=== PATIENT | female | born 1945 | race Caucasian/White ===

== ENCOUNTER 2017-03-31 12:20 | Emergency (ER) | payer MEDICARE ==
[~2017-03-31] VITALS: Ht 167.6 cm; Wt 105.0 kg
[~2017-03-31 12:20] MED LIST: AMIT10TA PO; AMLO5TAB2 PO; CLON0.1T PO; HYDR-3307 PO; LOSA50TA6 PO; OXYC5CAP2 PO; SUCR1TAB33 PO
[2017-03-31] MEDS ORDERED: SODIUM CHLORIDE 0.9% 1,000 ML IV ONE (12:27)
[2017-03-31] MEDS ORDERED: SODIUM CHLORIDE 0.9% 1,000ML IVBOLUS ONE ×2 (12:30→14:30)
[2017-03-31] MEDS ORDERED: ONDANSETRON 2MG/ML, 2ML IVPush ONE (12:30)
[2017-03-31] MEDS ORDERED: PROMETHAZINE 25 MG/ML, 1ML IM ONE (12:30)
[2017-03-31] MEDS ORDERED: MAALOX/HYOSCYAMINE/LIDOCAINE 45 ML BTL PO ONE (12:30)
[2017-03-31] MEDS ORDERED: FAMOTIDINE 20 MG/2 ML IVP ONE (12:30)
[2017-03-31] MEDS ORDERED: PROMETHAZINE 25 MG/ML, 1ML ONE (12:46)
[2017-03-31] MEDS ORDERED: morphine SULFATE 10 MG/ML, 1ML ONE ×2 (12:47→16:25)
[2017-03-31] MEDS ORDERED: FAMOTIDINE 20 MG/2 ML ONE (12:47)
[2017-03-31] MEDS ORDERED: ONDANSETRON 2MG/ML, 2ML ONE (12:47)
[2017-03-31] MEDS ORDERED: MAALOX/HYOSCYAMINE/LIDOCAINE 45 ML BTL ONE (12:47)
[2017-03-31] MEDS: MORPHINE SULFATE 4 MG/ML, 1ML IVPush PRN ×2 (12:54→16:29)
[2017-03-31 13:01] LABS: HEMATOCRIT 49.6 % (34.6-47.8); WHITE BLOOD COUNT 19.9 x10^3/uL (3.4-10)
[2017-03-31 13:12] LABS: BLOOD UREA NITROGEN 14 mg/dL (7-18)
[2017-03-31 13:33] LABS: ASPARTATE AMINO TRANSFERASE 19 U/L (15-37)
[2017-03-31 15:58] VITALS: BP 134/72
== END 2017-03-31 17:17 | disposition home or self-care (01) ==
LOC: ED 14:00
DX: K29.00 Acute gastritis without bleeding (principal); D72.829 Elevated white blood cell count, unspecified; G89.29 Other chronic pain; M54.9 Dorsalgia, unspecified
CPT/HCPCS: 36415; 80053; 81001; 83605; 83690; 84145; 85025; 87040; 87077; 87086; 87186; 96361; 96372; 96374; 96375; 96376; 99285; J2405; J2550; J7030; S0028

== ENCOUNTER 2018-05-02 05:49 | Inpatient (IN) | payer MEDICARE ==
[~2018-05-02] VITALS: Ht 167.6 cm; Wt 106.3 kg
[~2018-05-02 05:49] MED LIST changes: +AMLO-150 PO; -AMLO5TAB2 PO; +CEFD300C37 PO; -LOSA50TA6 PO; +LOSA50TA7 PO
[2018-05-02] MEDS ORDERED: FAMOTIDINE 20 MG/2 ML ONE (06:25)
[2018-05-02] MEDS ORDERED: ONDANSETRON 2MG/ML, 2ML ONE (06:25)
[2018-05-02] MEDS ORDERED: MAALOX/HYOSCYAMINE/LIDOCAINE 45 ML BTL ONE (06:25)
[2018-05-02] MEDS ORDERED: FAMOTIDINE 20 MG/2 ML IVP ONE (06:30)
[2018-05-02] MEDS ORDERED: ONDANSETRON 2MG/ML, 2ML IVPush ONE (06:30)
[2018-05-02] MEDS ORDERED: morphine SULFATE 10 MG/ML, 1ML IVPush ONE (06:30)
[2018-05-02] MEDS ORDERED: DIPHENHYDRAMINE 50 MG/ML, 1ML IVPush ONE (06:30)
[2018-05-02] MEDS ORDERED: SODIUM CHLORIDE 0.9% 1,000ML IVBOLUS ONE (06:30)
[2018-05-02] MEDS ORDERED: MAALOX/HYOSCYAMINE/LIDOCAINE 45 ML BTL PO ONE (06:30)
[2018-05-02] MEDS ORDERED: SODIUM CHLORIDE FLUSH 10ML SYR IVF ONE (06:30)
[2018-05-02 06:32] LABS: MEAN CORPUSCULAR HGB CONC 35.3 g/dL (32.4-35.8); MEAN CORPUSCULAR VOLUME 90.7 fL (80-100); MEAN PLATELET VOLUME 8.6 fL (7.4-10.4); PLATELET COUNT 292 x10^3/uL (130-400); RED BLOOD COUNT 5.16 x10^6/uL (3.82-5.3); RED CELL DISTRIBUTION WIDTH 14.6 % (9.6-15.2)
[2018-05-02 06:44] LABS: TROPONIN I < 0.015 ng/mL (0.000-0.045)
[2018-05-02 06:45] LABS: ALANINE AMINOTRANSFERASE 31 U/L (12-78); ALBUMIN 3.8 g/dL (3.4-5.0); ANION GAP 12 mmol/L (5-15); CALCIUM 9.3 mg/dL (8.5-10.1); CHLORIDE 104 mmol/L (98-107); CREATININE 1.03 mg/dL (0.55-1.02)
[2018-05-02 06:47] LABS: ALKALINE PHOSPHATASE 72 U/L (45-117); BILIRUBIN,TOTAL 0.3 mg/dL (0.2-1.0); TOTAL PROTEIN 7.3 g/dL (6.4-8.2)
[2018-05-02 07:17] LABS: BASOPHILS # (AUTO) 0.05 x10^3/uL (0-0.1); BASOPHILS % (AUTO) 0 % (0-1); EOSINOPHILS % (AUTO) 1 % (1-7); LYMPHOCYTES # (AUTO) 1.91 x10^3/uL (1-3.4); LYMPHOCYTES % (AUTO) 12 % (22-44); MD SCAN; MONOCYTES # (AUTO) 1.49 x10^3/uL (0.2-0.8); MONOCYTES % (AUTO) 10 % (2-9); NEUTROPHILS # (AUTO) 12.18 x10^3/uL (1.8-6.8); NEUTROPHILS % (AUTO) 77 % (42-75)
[2018-05-02 07:29] LABS: MICROSCOPIC INDICATED
[2018-05-02 07:34] LABS: CULTURE INDICATED? YES
[2018-05-02] MEDS ORDERED: CEFTRIAXONE PMX 1GM/50ML 50 ML IV ONE (08:00)
[2018-05-02] MEDS ORDERED: CEFTRIAXONE PMX 1GM/50ML 50 ML ONE (08:17)
[2018-05-02] MEDS ORDERED: VERA120C2 PO (08:51)
[2018-05-02] MEDS ORDERED: POLYETHYLENE GLYCOL 17 GM PACKET PO PRN (09:00)
[2018-05-02] MEDS ORDERED: BISACODYL 10 MG SUPP PR PRN (09:00)
[2018-05-02] MEDS ORDERED: ONDANSETRON ODT 4 MG PO PRN (09:00)
[2018-05-02] MEDS ORDERED: ACETAMINOPHEN 325 MG TABLET PO PRN (09:00)
[2018-05-02] MEDS ORDERED: ENALAPRILAT 1.25 MG/ML, 2ML IVPush PRN (09:00)
[2018-05-02] MEDS ORDERED: LABETALOL 5MG/ML, 20ML IVPush PRN (09:00)
[2018-05-02] MEDS ORDERED: ONDANSETRON 2MG/ML, 2ML IVPush PRN (09:00)
[2018-05-02] MEDS ORDERED: DOCUSATE 100 MG CAPSULE PO PRN (09:00)
[2018-05-02 09:28] VITALS: BP 159/97
[2018-05-02] MEDS: VERAPAMIL ER 120MG TABLET.ER PO SCH (09:55)
[2018-05-02] MEDS: ACYCLOVIR 400 MG TABLET PO SCH ×3 (09:55→20:31)
[2018-05-02] MEDS: HEPARIN 5,000 UNITS/ML, 1ML SQ SCH ×2 (09:55→18:00)
[2018-05-02] MEDS: HYDROcodone/APAP 10/325 MG TABLET PO PRN ×3 (11:57→20:31)
[2018-05-02] MEDS: SODIUM CHLORIDE 0.9% 1,000 ML IV SCH ×2 (11:58→19:51)
[2018-05-02 14:15] VITALS: BP 127/72
[2018-05-02 20:15] VITALS: BP 139/78
[2018-05-02] MEDS: MAALOX/HYOSCYAMINE/LIDOCAINE 45 ML BTL PO PRN (20:28)
[2018-05-02] MEDS ORDERED: AMITRIPTYLINE 75 MG TABLET PO PRN (21:00)
[2018-05-03] MEDS: HYDROcodone/APAP 10/325 MG TABLET PO PRN ×6 (00:56→22:26)
[2018-05-03] MEDS: HEPARIN 5,000 UNITS/ML, 1ML SQ SCH ×3 (02:02→17:18)
[2018-05-03 02:10] VITALS: BP 142/83
[2018-05-03] MEDS: SODIUM CHLORIDE 0.9% 1,000 ML IV SCH ×2 (03:07→13:18)
[2018-05-03 05:33] LABS: MEAN CORPUSCULAR HEMOGLOBIN 31.4 pg (27.0-34.8); MEAN CORPUSCULAR HGB CONC 34.1 g/dL (32.4-35.8); MEAN CORPUSCULAR VOLUME 92.2 fL (80-100); MEAN PLATELET VOLUME 8.5 fL (7.4-10.4); PLATELET COUNT 261 x10^3/uL (130-400); RED BLOOD COUNT 4.45 x10^6/uL (3.82-5.3); RED CELL DISTRIBUTION WIDTH 14.9 % (9.6-15.2)
[2018-05-03 05:43] LABS: CHLORIDE 108 mmol/L (98-107)
[2018-05-03 05:51] LABS: ANION GAP 9 mmol/L (5-15); CALCIUM 8.1 mg/dL (8.5-10.1); CREATININE 0.89 mg/dL (0.55-1.02)
[2018-05-03 05:53] LABS: BASOPHILS # (AUTO) 0.08 x10^3/uL (0-0.1); BASOPHILS % (AUTO) 1 % (0-1); EOSINOPHILS # (AUTO) 0.22 x10^3/uL (0-0.4); EOSINOPHILS % (AUTO) 3 % (1-7); LYMPHOCYTES # (AUTO) 3.01 x10^3/uL (1-3.4); LYMPHOCYTES % (AUTO) 39 % (22-44); MD SCAN; MONOCYTES % (AUTO) 12 % (2-9); NEUTROPHILS # (AUTO) 3.44 x10^3/uL (1.8-6.8); NEUTROPHILS % (AUTO) 45 % (42-75)
[2018-05-03 05:54] LABS: HEMOGLOBIN A1C 6.8 % (4.2-6.3)
[2018-05-03] MEDS: CEFTRIAXONE PMX 1GM/50ML 50 ML IV SCH (08:35)
[2018-05-03] MEDS: VERAPAMIL ER 120MG TABLET.ER PO SCH (08:35)
[2018-05-03] MEDS: ACYCLOVIR 400 MG TABLET PO SCH ×3 (08:37→21:00)
[2018-05-03 08:56] VITALS: BP 151/73
[2018-05-03] MEDS: MAALOX/HYOSCYAMINE/LIDOCAINE 45 ML BTL PO PRN (09:19)
[2018-05-03] MEDS: LIDODERM 5% PATCH TD PRN (09:19)
[2018-05-03] MEDS: SUCRALFATE 1 GM/10 ML UDC PO SCH ×3 (12:51→21:00)
[2018-05-03 18:05] VITALS: BP 159/83
[2018-05-03] MEDS: VERAPAMIL ER 180MG TABLET.ER PO SCH ×2 (18:24→18:33)
[2018-05-03 19:41] VITALS: BP 156/89
[2018-05-03] MEDS ORDERED: AMITRIPTYLINE 75 MG TABLET PO SCH (21:00)
[2018-05-04] MEDS: HEPARIN 5,000 UNITS/ML, 1ML SQ SCH ×2 (02:00→08:36)
[2018-05-04] MEDS: HYDROcodone/APAP 10/325 MG TABLET PO PRN ×2 (02:56→07:16)
[2018-05-04] MEDS: SODIUM CHLORIDE 0.9% 1,000 ML IV SCH (02:56)
[2018-05-04] MEDS: LIDODERM 5% PATCH TD PRN (05:30)
[2018-05-04] MEDS: SUCRALFATE 1 GM/10 ML UDC PO SCH (07:16)
[2018-05-04 07:50] VITALS: BP 146/82
[2018-05-04] MEDS ORDERED: VERAPAMIL ER 120MG TABLET.ER ONE (08:31)
[2018-05-04] MEDS: CEFTRIAXONE PMX 1GM/50ML 50 ML IV SCH (08:36)
[2018-05-04] MEDS: ACYCLOVIR 400 MG TABLET PO SCH (08:37)
[2018-05-04] MEDS: VERAPAMIL ER 180MG TABLET.ER PO SCH (08:37)
[2018-05-04] MEDS ORDERED: ACYC-114 PO (08:58)
[2018-05-04] MEDS ORDERED: VERA180T56 PO (08:58)
[2018-05-04] MEDS ORDERED: CEFD300C37 PO (08:58)
[2018-05-04] MEDS ORDERED: VERAPAMIL ER 180MG TABLET.ER PO SCH (09:00)
== END 2018-05-04 11:12 | disposition home or self-care (01) | DRG 871 ==
LOC: ED 07:46 → EDIP 07:47 → ED 08:02 → 4NOR 09:15
PROVIDERS: ADMIT Hospitalist; ATTEND Hospitalist
DX: A41.9 Sepsis, unspecified organism (principal); J96.21 Acute and chronic respiratory failure with hypoxia; N10 Acute pyelonephritis; I10 Essential (primary) hypertension; A60.00 Herpesviral infection of urogenital system, unspecified; E11.9 Type 2 diabetes mellitus without complications; Z79.84 Long term (current) use of oral hypoglycemic drugs; R53.82 Chronic fatigue, unspecified; E66.9 Obesity, unspecified; Z68.37 Body mass index [BMI] 37.0-37.9, adult; Z88.6 Allergy status to analgesic agent; Z88.2 Allergy status to sulfonamides; Z88.8 Allergy status to other drugs, medicaments and biological substances; G47.00 Insomnia, unspecified; G47.33 Obstructive sleep apnea (adult) (pediatric); G89.29 Other chronic pain; M79.7 Fibromyalgia; Z90.710 Acquired absence of both cervix and uterus; Z90.49 Acquired absence of other specified parts of digestive tract
CPT/HCPCS: 36415; 80048; 80053; 81001; 83036; 83605; 83690; 83735; 84100; 84145; 84484; 85025; 87040; 87077; 87086; 87186; 93005; 96361; 96365; 96375; 99285; G0378; J0696; J1644; J2405; J3490; J7030

== ENCOUNTER 2019-06-03 06:29 | Emergency (ER) | payer MEDICARE ==
[~2019-06-03] VITALS: Ht 170.2 cm; Wt 104.3 kg
[~2019-06-03 06:29] MED LIST changes: +ACYC-114 PO; -CLON0.1T PO; +CLON0.1T22 PO; -HYDR-3307 PO; +HYDR-36 PO; +LOSA50TA14 PO; -LOSA50TA7 PO; +VERA120C2 PO; +VERA180T6 PO
[2019-06-03 06:32] VITALS: BP 165/91
--- NOTE | 2019-06-03 06:54 | NUR ---
ER PA AMA IN TO CONDUCT PELVIC EXAM
--- NOTE | 2019-06-03 06:54 | NUR ---
BEDSIDE REPORT TO PEPPER RODRÍGUEZ
[2019-06-03] MEDS ORDERED: FLUCONAZOLE 100 MG TABLET PO ONE (07:00)
[2019-06-03] MEDS ORDERED: FLUCONAZOLE 100 MG TABLET ONE (07:08)
[2019-06-03 07:35] LABS: BASOPHILS % (AUTO) 1 % (0-1); EOSINOPHILS # (AUTO) 0.32 x10^3/uL (0-0.4); EOSINOPHILS % (AUTO) 3 % (1-7); LYMPHOCYTES # (AUTO) 3.83 x10^3/uL (1-3.4); LYMPHOCYTES % (AUTO) 39 % (22-44); MD NO; MEAN CORPUSCULAR HEMOGLOBIN 30.8 pg (27.0-34.8); MEAN CORPUSCULAR VOLUME 90.6 fL (80-100); MEAN PLATELET VOLUME 8.9 fL (7.4-10.4); MONOCYTES # (AUTO) 1.07 x10^3/uL (0.2-0.8); MONOCYTES % (AUTO) 11 % (2-9); NEUTROPHILS % (AUTO) 46 % (42-75); PLATELET COUNT 266 x10^3/uL (130-400); RED BLOOD COUNT 5.26 x10^6/uL (3.82-5.3); RED CELL DISTRIBUTION WIDTH 13.6 % (9.6-15.2)
[2019-06-03 07:46] LABS: ALANINE AMINOTRANSFERASE 27 U/L (12-78); ALBUMIN 3.7 g/dL (3.4-5.0); ANION GAP 11 mmol/L (5-15); CALCIUM 8.7 mg/dL (8.5-10.1); CHLORIDE 101 mmol/L (98-107); CREATININE 1.07 mg/dL (0.55-1.02)
[2019-06-03 07:48] LABS: ALKALINE PHOSPHATASE 70 U/L (45-117); BILIRUBIN,TOTAL 0.6 mg/dL (0.2-1.0); TOTAL PROTEIN 7.5 g/dL (6.4-8.2)
[2019-06-03 08:24] LABS: MICROSCOPIC INDICATED
[2019-06-03 08:29] LABS: CULTURE INDICATED? YES
== END 2019-06-03 09:16 | disposition home or self-care (01) ==
LOC: ED 08:40
DX: B37.3 Candidiasis of vulva and vagina (principal); E11.65 Type 2 diabetes mellitus with hyperglycemia; I10 Essential (primary) hypertension; R30.0 Dysuria; R53.82 Chronic fatigue, unspecified; Z90.49 Acquired absence of other specified parts of digestive tract; Z90.710 Acquired absence of both cervix and uterus; Z79.84 Long term (current) use of oral hypoglycemic drugs; Z79.899 Other long term (current) drug therapy; Z88.2 Allergy status to sulfonamides; Z88.5 Allergy status to narcotic agent
CPT/HCPCS: 36415; 80053; 81001; 85025; 87077; 87086; 87186; 99283

== ENCOUNTER 2020-03-11 20:25 | Emergency (ER) | payer MEDICARE ==
[~2020-03-11] VITALS: Ht 167.6 cm; Wt 105.0 kg
[~2020-03-11 20:25] MED LIST changes: +HYDR-3246 PO; -HYDR-36 PO
--- NOTE | 2020-03-11 20:36 | NUR ---
PT BIB EMS FOR HIP PAIN ON HER LEFT SIDE THAT SHOOTS UP HER BACK. PT HAS HX OF CHRONIC HIP PAIN. SAYS IT GOT WORSE OVER THE LAST 3 DAYS. PT RECIEVED 200 OF FENTNYL AND 2MG VERSED AIR CONDITIONING TECHNICIAN. PT RESTING IN [facility]. CONNECTED TO MONITORING EQUIPMENT
[2020-03-11 22:30] VITALS: BP 158/91
== END 2020-03-11 22:38 | disposition home or self-care (01) ==
LOC: ED 22:25
DX: M54.42 Lumbago with sciatica, left side (principal); M47.896 Other spondylosis, lumbar region; I10 Essential (primary) hypertension; E11.9 Type 2 diabetes mellitus without complications; Z90.49 Acquired absence of other specified parts of digestive tract; Z90.710 Acquired absence of both cervix and uterus; Z90.89 Acquired absence of other organs
CPT/HCPCS: 72110; 99284